=== PATIENT | female | born 1980 | race Caucasian/White ===

== ENCOUNTER 2021-05-02 20:45 | Inpatient (IN) | payer OTHER ==
[~2021-05-02] VITALS: Ht 162.6 cm; Wt 111.7 kg
--- NOTE | 2021-05-02 21:40 | NUR ---
PT IS A 40 YEAR OLD FEMALE FROM [facility] WITH DIZZINES AND SHORTNESS OF BREATH . COVID WAS NEGATIVE. GETING OVER THE FLU. REPORTS TAKING A TRIP TO [place] AND HAVING SOME CHEST PAIN AND CALLED HER DOCTOR AND THEY RECOMEND SHE GO TO THE ER BUT DID NOT GO. HAS A HISTORY OF LEFT VENTRICULAR HYPERTROPHY. FAMILY CARDIAC HISTORY. ON THE MONITOR AND CALL LIGHT WITHIN REACH IF NEEDS ASSISTANCE PER NURSING. LUNGS CLEAR ON ROOM AIR. NO SKIN ISSUES.
[2021-05-02 22:00] VITALS: BP 119/70
[2021-05-02] MEDS ORDERED: MELOXICAM15 MG PO (22:19)
[2021-05-02] MEDS ORDERED: GABAPENTIN100 MG PO (22:28)
[2021-05-02] MEDS ORDERED: LISINOPRIL-HCT1 EAC2 PO (22:33)
[2021-05-02] MEDS ORDERED: NOVOLOG100 UNIT/M SUBQ (22:38)
[2021-05-02] MEDS ORDERED: NOVOLIN R100 UNIT/3 SUBQ (22:58)
[2021-05-02] MEDS ORDERED: METFORMIN HCL1000 M2 PO (22:59)
[2021-05-02] MEDS ORDERED: PROAIR RESPICL90 MCG INH (23:11)
[2021-05-02] MEDS ORDERED: LISINOPRIL-HCT1 EACH PO (23:13)
[2021-05-02 23:52] LABS: APTT 31.7 Seconds (24.5-32.8); PROTIME 10.9 Seconds (10.5-12.1)
[2021-05-03] VITALS (10 sets, daily range): BP systolic 115–154; BP diastolic 68–114
[2021-05-03 00:21] LABS: HEMATOCRIT 41.3 % (37.0-47.0); HEMOGLOBIN 13.9 gm/dL (12.0-15.0); MCH 30.4 pg (26.0-34.0); MCHC 33.7 g/dL (28.0-37.0); MCV 90.2 fL (80.0-100.0); RBC 4.58 mil/uL (4.20-5.00); WBC 8.5 thou/uL (4.0-11.0)
[2021-05-03 00:32] LABS: CALCIUM 9.2 mg/dL (8.5-10.1); CREATININE 0.8 mg/dL (0.6-1.0); POTASSIUM 4.6 mmol/L (3.5-5.1)
[2021-05-03 00:38] LABS: CHOLESTEROL 143 mg/dL (<200); HDL CHOLESTEROL 37 mg/dL (>40); LDL CHOLESTEROL 46 mg/dL (<100); TC:HDL 3.9 Ratio (Not establshd); TRIGLYCERIDE 303 mg/dL (<150); VLDL 61 mg/dL (<40)
[2021-05-03 00:54] LABS: SERUM ASSESSMENT Clear
--- NOTE | 2021-05-03 07:45 | EKG ---
[place] [address] [facility] [place] [address] ELECTROCARDIOGRAM REPORT Name: SIVLANA JOY Room #: 200-I ADM IN M.R.#: [id number] Admission: 05/02/21 Attend Phys: Timbo Chowdhury MD Discharge: Date of : 84 Report #: [id number] [facility] Test Date: 2021-05-03 Test Time: 07:20:16 Pat Name: SILVANA JOY Department: Room: 200 I Gender: F Seismic Engineer: СВЕТЛАНА : 1980 Requested By: Celena Alegria Order Number: [id number] MD: Martin Fischer Measurements Intervals [place] Rate: 75 P: 37 [place]: 139 QRS: 1 QRSD: 91 T: 158 QT: 443 QTc: 495 Interpretive Statements Sinus rhythm LVH with secondary repolarization abnormality Borderline prolonged QT interval No previous ECG available for comparison Electronically Signed On 05-03-2021 7:45:40 CARTON FORMING MACHINE HELPER by Martin Fischer [email or web address] <ELECTRONICALLY SIGNED> By: Martin Fischer MD, [facility] 05/03/21 0745 9 07 Martin Fischer MD, FAC /EPI
--- NOTE | 2021-05-03 11:40 | NUR ---
PATIENT ARRIVED BACK TO UNIT POST CARDIAC CATH, NO INTERVENTIONS. RIGHT GROIN SITE ACCESS MYNXED. BEDREST 3 HOURS POST (1330). POST PROCEDURE VITALS AND ASSESSMENTS CHARTED.
--- NOTE | 2021-05-03 15:15 | 2DMMODE ---
[facility] [address] [place] [address] 2 D/M-MODE ECHOCARDIOGRAM Name: SILVANA JOY Room #: 200-I ADM IN M.R.#: [id number] Admission: 05/02/21 Attend Phys: Timbo Chowdhury MD Discharge: Date of : 84 Report #: [id number] THIS REPORT FOR: cc: FAM - No family physician/PCP FAM - No family physician/PCP Javi Gallo MD [facility] ~ APPROVED REPORT Study performed: 05/03/2021 13:58:37 EXAM: Comprehensive 2D, Doppler, and color-flow Echocardiogram Patient Location: Bedside Room #: 200 Status: routine BSA: 2.14 HR: 74 bpm BP: 126/73 mmHg Rhythm: NSR Other Information Study Quality: Technically Difficult Technically limited study due to body habitus, inability to position patient, Echo done post cath. Indications Elevated Troponin Hypertension/HDD Morbid obesity Aortic Valve AoV Peak Marco.: 1.39 m/s AO Peak Gr.: 7.69 mmHg LVOT Max P.21 mmHg LVOT Max V: 1.25 m/s Left Ventricle The left ventricle is normal size. Mild concentric left ventricular hypertrophy. The left ventricular systolic function is normal. The left ventricular ejection fraction is within the normal range. LVEF is 55-60%. This study is not technically sufficient to allow evaluation of the LV diastolic function. Right Ventricle The right ventricle is normal size. The right ventricular systolic function is normal. [facility] [address] [place] [address] 2 D/M-MODE ECHOCARDIOGRAM Name: SILVANA JOY Room #: 200-I ADM IN M.R.#: [id number] Admission: 05/02/21 Attend Phys: Timbo Chowdhury MD Discharge: Date of : 84 Report #: [id number] Atria The left atrium size is normal. The right atrium size is normal. Aortic Valve The aortic valve is not well visualized. No aortic regurgitation is present. There is no aortic valvular stenosis. Mitral Valve The mitral valve is normal in structure. Trace to mild mitral regurgitation. No evidence of mitral valve stenosis. Tricuspid Valve The tricuspid valve is normal in structure. There is no tricuspid valve regurgitation noted. Pulmonic Valve Pulmonic valve is not well visualized. There is no pulmonic valvular regurgitation. Great Vessels The aortic root is normal in size. The inferior vena cava is not well visualized. Pericardium There is no pericardial effusion. <Conclusion> The left ventricle is normal size. Mild concentric left ventricular hypertrophy. LVEF is 55-60%. This study is not technically sufficient to allow evaluation of the LV diastolic function. The right ventricle is normal size. The left atrium size is normal. No aortic regurgitation is present. Trace to mild mitral regurgitation. There is no tricuspid valve regurgitation noted. The aortic root is normal in size. There is no pericardial effusion. <ELECTRONICALLY SIGNED> By: Javi Gallo MD, FACC 05/03/21 151 14 14 Javi Gallo MD, FACC /INF
--- NOTE | 2021-05-03 15:34 | NUR ---
PATIENT ADMITTED FOR DIZZY, SOB, AND FEELING NOT REALLY WITH IT. SHE REPORTED HAVING CHEST PAIN FOR A WEEK. CALLED HER PCP, Marilyn TICO PELLETIER IN [place] AND SHE RECOMMENDED SEEKING MEDICAL TREATMENT. PT DID NOT FOLLOW AND SEEK TREATMENT AT THAT TIME. PT REPORTS SHE IN INDEPENDENT WITH ALL ADLS AND MOBILITY. NO CONCERNS ONCE MEDICALLY STABLE TO DC. AT SIDE. PT REPORTS SHE DOES NOT USE ASSISTIVE DEVICES AND HOPING TO GO HOME TODAY OR TOMORROW. PT WILL DC HOME WITH NO CM INTERVENTIONS AT THIS TIME.
[2021-05-03] MEDS ORDERED: BAYER CHEWABLE81 MG PO (16:39)
[2021-05-03] MEDS ORDERED: LIPITOR 20 MG T20 M1 PO (16:39)
--- NOTE | 2021-05-03 18:02 | CATHLAB ---
[facility] [place] [address] [place] [address] INVASIVE PROCEDURE REPORT Name: SILVANA JOY Room #: 200-I ADM IN M.R.#: [id number] Admission: 05/02/21 Attend Phys: Timbo Chowdhury MD Discharge: Date of : 84 Report #: [id number] THIS REPORT FOR: cc: FAM - No family physician/PCP FAM - No family physician/PCP Javi Gallo MD [facility] ~ APPROVED REPORT Study performed: 05/03/2021 08:23:47 Patient Details Patient Status: In-Patient Room #: 200 The patient is a 40 year-old female Event Personnel Javi Gallo Mine Development Engineer, Lori Berry RTR Monitor, Alma Alfaro RTR, RENEWAL SPECIALIST Scrub, Brianne Chin RN RN, Taylor Luke RTR Scrub Procedures Performed Art Access - R femoral artery* Left Heart Cath w/or w/o Coronaries [id number] [facility] Aortogram Abdominal Peripheral Angio 364418 66758 Initial Mod Sed Same Phys/QHP Gr5y 783821 21743 Mod Sed Same Phys/QHP Ea 400936 Hemostasis w/ Mynx Procedure Narrative The Right Groin^ was infiltrated with 1% Lidocaine subcutaneous anesthesia. A PINNACLE 6FR Sheath #[id number] sheath was inserted into the RFA^. Coronary angiography was performed using coronary diagnostic catheters. The right coronary system was accessed and visualized with a JR4 catheter. The left coronary system was accessed and visualized with a JL4 catheter. The left ventricle was accessed and visualized with a STRAIGHT PIGTAIL catheter. Left ventriculogram was performed in 30 degree projection. An aortogram of the abdominal aorta was performed. Closure device was deployed with a Fr MYNXGRIP 6/7F #[id number]. The patient tolerated the procedure well and there were no complications associated with the procedure. There was no hematoma. Intraoperative Conscious Sedation Sedation start time: 9:27 Case end Time: 9:59 Fentanyl 100 mcg Versed 2 mg [facility] [address] [email or web address] [address] INVASIVE PROCEDURE REPORT Name: SILVANA JOY Room #: 200-I [facility] IN ..#: [id number] Admission: 05/02/21 Attend Phys: Timbo Chowdhury MD Discharge: Date of : 84 Report #: [id number] Fluoro Time: 2.00 minutes Dose: DAP 5193.20 cGycm2 623 mGy Contrast Type and Amount: Omnipaque 135 ml Hemodynamics The aortic pressure is 122/65 mmHg with a mean of 78 mmHg. The left ventricular pressure is 127/1 mmHg with a mean of mmHg. The left ventricular end diastolic pressure is 17 mmHg. Conclusion #1 Normal left ventricular size and systolic function EF 60%. #2 left main short free of disease giving rise to LAD and circumflex. #3 LAD with mild irregularities its a type I and stops short of the apex smaller diffusely diseased distal vessel. #4 circumflex OM is large but nondominant with minimal irregularity. #5 large dominant right coronary artery widely patent. #6 abdominal aortogram is widely patent no evidence of aneurysm formation. Single bilateral renal arteries widely patent. Recommendations and plan: Continue aggressive risk factor modification. There is diffuse three-vessel disease in this diabetic patient. No indication for coronary intervention. <ELECTRONICALLY SIGNED> By: Javi Gallo MD, FACC 05/03/211801 01 01 Javi Gallo MD, FACC /INF
--- NOTE | 2021-05-03 19:14 | NUR ---
DISCHARGE ORDERS RECIEVED. PATIENT STATES SHE IS READY TO GO HOME. VOICED THAT SHE WAS EXPERIENCING HEADACHE, TREATED WITH TYLENOL. RIGHT GROIN SITE DRESSING INTACT AND CLEAN, NO HEMATOMA. REVIEWED DISCHARGE INSTRUCTIONS WITH PATIENT AND AT BEDSIDE. DENIES ANY QUESTIONS OR CONCERNS. IV DISCONTINUED. TELEMONTIOR OFF.
[2021-05-04 02:06] LABS: GLYCOHEMOGLOBIN (HGB A1C) 9.4 % (4.8-5.6)
== END 2021-05-03 18:36 | disposition home or self-care (01) | DRG 281 ==
LOC: 2N 20:45
PROVIDERS: Nurse Practitioner Family; ADMIT Hospitalist; ATTEND Hospitalist
PROC: B2111ZZ Fluoroscopy of Multiple Coronary Arteries using Low Osmolar Contrast (ICD-10-PCS; principal; 2021-05-03)
PROC: B2151ZZ Fluoroscopy of Left Heart using Low Osmolar Contrast (ICD-10-PCS; principal; 2021-05-03)
PROC: 4A023N7 Measurement of Cardiac Sampling and Pressure, Left Heart, Percutaneous Approach (ICD-10-PCS; principal; 2021-05-03)
DX: I21.4 Non-ST elevation (NSTEMI) myocardial infarction (principal); Z68.41 Body mass index [BMI] 40.0-44.9, adult; E11.9 Type 2 diabetes mellitus without complications; I10 Essential (primary) hypertension; Z20.822 Contact with and (suspected) exposure to COVID-19; E66.9 Obesity, unspecified
CPT/HCPCS: 10081

== ENCOUNTER 2021-07-01 20:03 | Inpatient (IN) | payer OTHER ==
[~2021-07-01] VITALS: Ht 152.4 cm; Wt 113.9 kg
[~2021-07-01 20:03] MED LIST: BAYER CHEWABLE81 MG PO; GABAPENTIN100 MG PO; LIPITOR 20 MG T20 M1 PO; LISINOPRIL-HCT1 EAC2 PO; LISINOPRIL-HCT1 EACH PO; MELOXICAM15 MG PO; METFORMIN HCL1000 M2 PO; NOVOLIN R100 UNIT/3 SUBQ; NOVOLOG100 UNIT/M SUBQ; PROAIR RESPICL90 MCG INH
[2021-07-01] MEDS ORDERED: ASA81BEC PO (21:19)
[2021-07-01] MEDS ORDERED: LIPITOR 20 MG T20 M1 PO (21:20)
[2021-07-01] MEDS ORDERED: CARVEDILOL12.5 MG PO (21:21)
[2021-07-01] MEDS ORDERED: DIFLUCAN150 M1 PO (21:22)
[2021-07-01] MEDS ORDERED: NEURONTIN100 MG PO (21:23)
[2021-07-01] MEDS ORDERED: IMDUR 30 MG TAB30 M1 PO (21:24)
[2021-07-01] MEDS ORDERED: LOSARTAN-HCTZ1 EAC3 PO (21:26)
[2021-07-01] MEDS ORDERED: MELOXICAM15 MG PO (21:27)
[2021-07-01] MEDS ORDERED: HYDROCHLOROTH12.5 M2 PO (21:27)
[2021-07-01] MEDS ORDERED: METFORMIN HCL500 M3 PO ×2 (21:29→21:30)
[2021-07-01] MEDS ORDERED: OMEPRAZOLE40 MG PO (21:33)
[2021-07-01] MEDS ORDERED: BYSTOLIC10 MG PO (21:33)
[2021-07-01] MEDS ORDERED: TRAMADOL 50 MG50 MG PO (21:34)
[2021-07-01] MEDS ORDERED: ZYRTEC10 M5 PO (21:35)
[2021-07-02] VITALS: BP 124/66
--- NOTE | 2021-07-02 02:33 | NUR ---
ADMIT PT ADMITTED TO ROOM 354 A DIRECT ADMIT FROM [facility] [place]. ARRIVED VIA STRETCHER WITH EMS. VSS. BEING ADMITTED WITH A NSTEMI. ORIENTED TO ROOM, CALL LIGHT SYSTEM, AND POC. PT REPORTED HEADACHE RATING PAIN A 6 TYLENOL GIVEN AND PT RATING PAIN A 3 NOW. IV TO LAC SL. TELEMETRY APPLIED READING ST WITH RATES IN THE 90'S. CONSULT TO DR. CHU CALLED. BERNABE PEREZ NOTIFIED OF ARRIVAL. MED REC COMPLETED, ADMISSION HISTORY AND ASSESSMENT COMPLETED. TO BE NPO AT NE FOR POSSIBLE ECHO OR CARDIAC CATH. ACCUCHECK 154. CONTINUE TO MONITOR.
[2021-07-02 04:09] VITALS: BP 119/56
[2021-07-02 07:40] VITALS: BP 131/74
[2021-07-02 08:12] LABS: HEMATOCRIT 40.2 % (37.0-47.0); HEMOGLOBIN 13.4 gm/dL (12.0-15.0); MCH 30.4 pg (26.0-34.0); MCHC 33.4 g/dL (28.0-37.0); MCV 91.1 fL (80.0-100.0); RBC 4.41 mil/uL (4.20-5.00); WBC 4.8 thou/uL (4.0-11.0)
[2021-07-02 08:49] LABS: CALCIUM 9.4 mg/dL (8.5-10.1); CREATININE 0.8 mg/dL (0.6-1.0); MAGNESIUM 1.6 mg/dL (1.8-2.4); POTASSIUM 4.2 mmol/L (3.5-5.1)
[2021-07-02 11:24] VITALS: BP 135/83
[2021-07-02 15:27] VITALS: BP 139/75
--- NOTE | 2021-07-02 18:36 | NUR ---
PT AOX4, VSS, NO HEART CATH TODAY, PATIENT ABLE TO EAT. MILD EPISODE OF CHEST PAIN THAT PASSED QUICKLY. NO OTHER COMPLAINTS.
[2021-07-02 20:08] VITALS: BP 125/69
--- NOTE | 2021-07-03 04:07 | NUR ---
PROGRESS PT A/O X4. VSS. LUNGS CLEAR NO COUGH, SOB, OR CHEST PAIN REPORTED THIS SHIFT. HEADACHE HAS RESOLVED. TELEMETRY INTACT READING SR IN THE 70'S. ON ROOM AIR. UP AD ANTONI, VOIDING QS, TOLERATING DIET, AND ACCUCHECKS AND SSI CONTINUE ORDERED.
[2021-07-03 05:19] VITALS: BP 97/53
[2021-07-03 07:28] VITALS: BP 121/58
[2021-07-03 13:20] LABS: HEMATOCRIT 39.3 % (37.0-47.0); HEMOGLOBIN 13.3 gm/dL (12.0-15.0); MCH 30.9 pg (26.0-34.0); MCHC 33.8 g/dL (28.0-37.0); MCV 91.2 fL (80.0-100.0); RBC 4.3 mil/uL (4.20-5.00); RDW 13.1 % (10.5-14.5); WBC 5.6 thou/uL (4.0-11.0)
[2021-07-03 13:31] LABS: CREATININE 0.9 mg/dL (0.6-1.0); MAGNESIUM 1.8 mg/dL (1.8-2.4); POTASSIUM 4.6 mmol/L (3.5-5.1)
[2021-07-03] MEDS ORDERED: METOPROLOL SUCC25 M1 PO (14:33)
[2021-07-03] MEDS ORDERED: COZAAR 25 MG TA25 M1 PO (14:34)
[2021-07-03 14:39] VITALS: BP 121/58
--- NOTE | 2021-07-03 16:21 | NUR ---
NO CHEST PAIN. VSS. DC TO HOME NOW.
--- NOTE | 2021-07-03 17:16 | EKG ---
[place] [address] [facility] [address] ELECTROCARDIOGRAM REPORT Name: SILVANA JOY Room #: 354- DIS IN M.R.#: [id number] Admission: 07/01/21 Attend Phys: Timbo Chowdhury MD Discharge: 07/03/21 Date of : 84 Report #: [id number] [facility] Test Date: 2021-07-02 Test Time: 07:57:31 Pat Name: SILVANA JOY Department: Room: 354 Gender: F Plant Cytologist: WILFRID : 1980 Requested By: Kati Arnett Order Number: [id number] MD: Maynor Greenberg Measurements Intervals [place] Rate: 76 P: 21 [place]: 138 QRS: -2 QRSD: 93 T: 160 QT: 434 QTc: 489 Interpretive Statements Sinus rhythm EARLY PRECORDIAL R/S TRANSITION LVH with secondary repolarization abnormality Compared to ECG 05/03/2021 07:20:16 no significant changes Electronically Signed On 07-03-2021 17:16:16 INDUCTION FURNACE OPERATOR by Maynor Greenberg [email or web address] <ELECTRONICALLY SIGNED> By: Maynor Greenberg MD 07/03/21 1716 075 6 Maynor Greenberg MD /EPI
== END 2021-07-03 16:22 | disposition home or self-care (01) | DRG 281 ==
LOC: 3W 20:03
PROVIDERS: Internal Medicine; Nurse Practitioner Family; ADMIT Hospitalist; ATTEND Hospitalist
DX: I21.4 Non-ST elevation (NSTEMI) myocardial infarction (principal); E11.9 Type 2 diabetes mellitus without complications; I10 Essential (primary) hypertension; E78.5 Hyperlipidemia, unspecified; E66.9 Obesity, unspecified; J45.909 Unspecified asthma, uncomplicated; G43.909 Migraine, unspecified, not intractable, without status migrainosus; G47.33 Obstructive sleep apnea (adult) (pediatric); I51.7 Cardiomegaly; E28.2 Polycystic ovarian syndrome; Z60.2 Problems related to living alone; Z88.8 Allergy status to other drugs, medicaments and biological substances; Z82.49 Family history of ischemic heart disease and other diseases of the circulatory system; Z91.040 Latex allergy status; Z68.42 Body mass index [BMI] 45.0-49.9, adult
CPT/HCPCS: 10879